=== PATIENT | male | born 1975 | race Caucasian/White ===

== ENCOUNTER 2019-03-20 21:36 | Emergency (ER) | payer BC ==
[~2019-03-20] VITALS: Ht 185.4 cm; Wt 114.3 kg
[2019-03-20 21:49] VITALS: BP 136/93; Ht 185.4 cm; Wt 114.3 kg
== END 2019-03-20 23:47 | disposition home or self-care (01) ==
LOC: ED 21:36
DX: N34.2 Other urethritis (principal)
CPT/HCPCS: 87491; 87591; J0696